=== PATIENT | female | born 1990 | race Caucasian/White ===

== ENCOUNTER 2022-08-31 05:51 | Inpatient (IN) | payer OTHER ==
[2022-08-31 06:19] VITALS: BMI 22.8
[2022-08-31 07:00] LABS: Fetal Membranes Rupture RUPTURE DETECTED (No Rupture)
[2022-08-31] MEDS ORDERED: Bupivacaine 0.25% HCL 30 ML VIAL ONE (08:00)
[2022-08-31] MEDS ORDERED: Ibuprofen 800 MG TAB PO PRN (10:37)
[2022-08-31] MEDS ORDERED: Butorphanol Tartrate 1 MG/ML VIAL SLOW IVP PRN (10:37)
[2022-08-31] MEDS ORDERED: Ondansetron PF 4 MG/2 ML Vial IVP PRN ×2 (10:37→14:19)
[2022-08-31] MEDS ORDERED: Lidocaine 1% (PF) 30 ML VIAL SC PRN (10:37)
[2022-08-31] MEDS ORDERED: hydrALAZINE 20 MG/ML VIAL SLOW IVP PRN ×2 (10:37→16:17)
[2022-08-31] MEDS ORDERED: Acetaminophen 500 MG TAB PO PRN (10:37)
[2022-08-31] MEDS ORDERED: Promethazine HCl 25 MG/ML VIAL IM PRN ×2 (10:37→14:19)
[2022-08-31] MEDS ORDERED: Fentanyl 100 MCG/2 ML VIAL SLOW IVP PRN (10:37)
[2022-08-31] MEDS ORDERED: HYDROcodone/Acetaminophen 5/325 mg Tablet PO PRN ×2 (10:37→16:17)
[2022-08-31] MEDS ORDERED: NS w/ Oxytocin 30 units 500 ML IV SCH (10:45)
[2022-08-31] MEDS ORDERED: Lactated Ringer's 1,000 ML IV SCH (11:00)
[2022-08-31] MEDS ORDERED: Fentanyl 2 mcg/Bup 0.1% Cadd 100 ML ONE (11:43)
[2022-08-31 12:02] LABS: Hemoglobin 14.3 g/dL (12.0-15.5); Mean Corpuscular HGB CONC 33.7 g/dL (32.0-36.0); Mean Corpuscular Hemoglobin 29.9 pg (27.0-33.0); Mean Corpuscular Volume 88.5 fl (81.6-98.3); Mean Platelet Volume 11.2 fl (7.4-10.4); Platelet Count 315 10x3/uL (150-450); RBC Distribution Width 14.1 % (11.5-14.5); Red Blood Cell (RBC) Count 4.79 10x6/uL (3.90-5.03); White Blood Cell (WBC) Count 15.5 10x3/uL (3.5-10.5)
[2022-08-31 12:11] LABS: Syphilis Antibody Nonreactive (Nonreactive); Syphilis Antibody Index 0.03 S/CO (<1.00 Non-Reactive)
[2022-08-31 12:12] LABS: HBSAg Index 0.14 S/CO (0-0.99); Hep B Surf Ag - L&D Non-Reactive S/CO (NonReactive)
[2022-08-31] MEDS ORDERED: Naloxone HCl 0.4 mg/ml Vial IVP PRN ×2 (14:19)
[2022-08-31] MEDS ORDERED: Lactated Ringer's 500 ML IV PRN (14:19)
[2022-08-31] MEDS ORDERED: ePHEDrine Sulfate 50 MG/10 ML VIAL SLOW IVP PRN (14:19)
[2022-08-31] MEDS ORDERED: diphenhydrAMINE 50 MG/ML VIAL IVP PRN (14:19)
[2022-08-31] MEDS ORDERED: Moisturizing Cream (Eucerin) 113 GM JAR TOP PRN (14:19)
[2022-08-31] MEDS ORDERED: Acetaminophen 325 MG TAB PO PRN (14:19)
[2022-08-31] MEDS ORDERED: Fentanyl 2 mcg/Bupivacaine 0.1% Cassette 100 ML EPIDURAL SCH (14:30)
[2022-08-31] MEDS ORDERED: Communication Order-Pharmacy FS SCH (14:30)
[2022-08-31] MEDS ORDERED: Preparation H Ointment 28 GM TUBE PR PRN (16:17)
[2022-08-31] MEDS ORDERED: Milk Of Magnesia 30 ML UDCUP PO PRN (16:17)
[2022-08-31] MEDS ORDERED: Bisacodyl 10 MG SUPP PR PRN (16:17)
[2022-08-31] MEDS ORDERED: Benzocaine-Menthol 82.5 ML CAN TOP PRN (16:17)
[2022-08-31] MEDS ORDERED: Boostrix 0.5 ML (Tdap) VIAL (>/=7 yrs of age) IM ONE (16:17)
[2022-08-31] MEDS ORDERED: Lanolin Ointment 7 GM TUBE TOP PRN (16:17)
[2022-08-31] MEDS: Ferrous Sulfate 325 MG TAB PO SCH (17:18)
[2022-08-31] MEDS: Ibuprofen 800 MG TAB PO SCH (17:25)
[2022-08-31 18:21] LABS: HIV (1/2) Antibody/Antigen Non-Reactive (NonReactive)
[2022-08-31] MEDS: Docusate 100 MG CAP PO SCH (22:39)
[2022-09-01] MEDS: Ibuprofen 800 MG TAB PO SCH ×3 (04:45→20:40)
[2022-09-01] MEDS: Ferrous Sulfate 325 MG TAB PO SCH ×2 (09:06→16:44)
[2022-09-01] MEDS: Docusate 100 MG CAP PO SCH ×2 (09:31→20:39)
[2022-09-01] MEDS ORDERED: Benzocaine-Menthol 82.5 ML CAN TOP PRN (20:07)
[2022-09-01] MEDS ORDERED: Bisacodyl 10 MG SUPP PR PRN (20:07)
[2022-09-01] MEDS ORDERED: HYDROcodone/Acetaminophen 5/325 mg Tablet PO PRN (20:08)
[2022-09-01] MEDS ORDERED: Lanolin Ointment 7 GM TUBE TOP PRN (20:09)
[2022-09-01] MEDS ORDERED: Preparation H Ointment 28 GM TUBE PR PRN (20:09)
[2022-09-01] MEDS ORDERED: Milk Of Magnesia 30 ML UDCUP PO PRN (20:09)
[2022-09-02] MEDS: Ibuprofen 800 MG TAB PO SCH (04:43)
[2022-09-02] MEDS ORDERED: Ferrous Sulfate 325 MG TAB PO SCH (08:00)
[2022-09-02 08:18] VITALS: BP 116/74; TEMP 98.2
[2022-09-02] MEDS: Docusate 100 MG CAP PO SCH (09:19)
== END 2022-09-02 13:25 | disposition home or self-care (01) | DRG 806 ==
LOC: CSHLD/OP 05:51 → CSHPP 05:52 → UNDOADMIN 09:22 → CSHLD 09:22 → CSHPP 16:40 → UNDODISIN 09-01 12:30
PROVIDERS: ADMIT Family Medicine; ATTEND Family Medicine
PROC: 10E0XZZ Delivery of Products of Conception, External Approach (ICD-10-PCS; principal; 2022-08-31)
PROC: 0HQ9XZZ Repair Perineum Skin, External Approach (ICD-10-PCS; 2022-08-31)
DX: O42.02 Full-term premature rupture of membranes, onset of labor within 24 hours of rupture (principal); O98.52 Other viral diseases complicating childbirth; Z37.0 Single live birth; B00.9 Herpesviral infection, unspecified; Z3A.40 40 weeks gestation of pregnancy; Z79.899 Other long term (current) drug therapy; O48.0 Post-term pregnancy; O70.0 First degree perineal laceration during delivery
CPT/HCPCS: 36415; 51702; 84112; 85027; 86780; 86850; 86900; 86901; 87340; 87389; 99285; S0020

== ENCOUNTER 2024-03-21 08:15 | Inpatient (IN) | payer OTHER ==
[~2024-03-21 08:15] MED LIST: Bupivacaine 0.25% HCL 30 ML VIAL ONE
[2024-03-21] MEDS ORDERED: Lidocaine 1% (PF) 30 ML VIAL SC PRN (08:37)
[2024-03-21] MEDS ORDERED: Misoprostol 200 MCG TAB PR PRN (08:37)
[2024-03-21] MEDS ORDERED: Promethazine HCl 25 MG/ML VIAL IM PRN ×2 (08:37→09:30)
[2024-03-21] MEDS ORDERED: Tranexamic Acid 1,000 MG/10 ML VIAL IVP PRN (08:37)
[2024-03-21] MEDS ORDERED: fentaNYL 50 mcg/mL 1 mL Vial SLOW IVP PRN (08:37)
[2024-03-21] MEDS ORDERED: Methylergonovine 0.2 MG/ML VIAL IM PRN (08:37)
[2024-03-21] MEDS ORDERED: Diphenoxylate HCl/Atropine Tablet PO PRN (08:37)
[2024-03-21] MEDS ORDERED: HYDROcodone/Acetaminophen 5/325 mg Tablet PO PRN ×2 (08:37→13:43)
[2024-03-21] MEDS ORDERED: hydrALAZINE 20 MG/ML VIAL SLOW IVP PRN ×2 (08:37→13:43)
[2024-03-21] MEDS ORDERED: Carboprost 250 MCG/ML AMP IM PRN (08:37)
[2024-03-21] MEDS ORDERED: Oxytocin 30 units/NS 500 ML 500 ML IV SCH (08:45)
[2024-03-21] MEDS ORDERED: Lactated Ringer's 1,000 ML IV SCH (08:45)
[2024-03-21 08:46] VITALS: BMI 22.7
[2024-03-21 08:46] LABS: Hematocrit 47.2 % (34.9-44.5); Hemoglobin 15.7 g/dL (12.0-15.5); Mean Corpuscular HGB CONC 33.3 g/dL (32.0-36.0); Mean Corpuscular Hemoglobin 29.7 pg (27.0-33.0); Mean Corpuscular Volume 89.4 fL (81.6-98.3); Mean Platelet Volume 10.3 fL (7.4-10.4); Platelet Count 286 10x3/uL (150-450); RBC Distribution Width 13.8 % (11.5-14.5); Red Blood Cell (RBC) Count 5.28 10x6/uL (3.90-5.03); White Blood Cell (WBC) Count 12.5 10x3/uL (3.5-10.5)
[2024-03-21] MEDS: fentaNYL/Ropivacaine Epidural 100 ML ONE (09:11)
[2024-03-21 09:19] LABS: HBsAg Index 0.21 S/CO (0-0.99); HIV (1/2) Antibody/Antigen Non-Reactive (NonReactive); Hep B Surf Ag - L&D Non-Reactive S/CO (NonReactive)
[2024-03-21 09:20] LABS: Syphilis Antibody Nonreactive (Nonreactive); Syphilis Antibody Index 0.03 S/CO (<1.00 Non-Reactive)
[2024-03-21] MEDS ORDERED: Communication Order-Pharmacy FS SCH (09:30)
[2024-03-21] MEDS ORDERED: Moisturizing Cream (Eucerin) 113 GM JAR TOP PRN (09:30)
[2024-03-21] MEDS ORDERED: fentaNYL 2 mcg/Ropivacaine 0.2% Epidural 100 ML CADD EPIDURAL SCH (09:30)
[2024-03-21] MEDS ORDERED: Acetaminophen 325 MG TAB PO PRN (09:30)
[2024-03-21] MEDS ORDERED: diphenhydrAMINE 50 MG/ML VIAL IVP PRN (09:30)
[2024-03-21] MEDS ORDERED: ePHEDrine Sulfate 50 MG/10 ML VIAL SLOW IVP PRN (09:30)
[2024-03-21] MEDS ORDERED: Lactated Ringer's 500 ML IV PRN (09:30)
[2024-03-21] MEDS ORDERED: Naloxone HCl 0.4 mg/ml Vial IVP PRN ×2 (09:30)
[2024-03-21] MEDS: Ibuprofen 800 MG TAB PO PRN (10:05)
[2024-03-21] MEDS: Ondansetron PF 4 MG/2 ML Vial IVP PRN ×2 (10:44→13:22)
[2024-03-21] MEDS: Oxytocin 30 units/NS 500 ML 500 ML ONE ×2 (12:47→14:37)
[2024-03-21] MEDS: Methylergonovine 0.2 MG/ML VIAL ONE (13:06)
[2024-03-21] MEDS ORDERED: Bisacodyl 10 MG SUPP PR PRN (13:43)
[2024-03-21] MEDS ORDERED: Preparation H Ointment 28 GM TUBE PR PRN (13:43)
[2024-03-21] MEDS ORDERED: Milk Of Magnesia 30 ML UDCUP PO PRN (13:43)
[2024-03-21] MEDS: Misoprostol 200 MCG TAB ONE (14:37)
[2024-03-21] MEDS: Carboprost 250 MCG/ML AMP ONE (14:37)
[2024-03-21] MEDS: Tranexamic Acid 1,000 MG/10 ML VIAL ONE (14:37)
[2024-03-21] MEDS: Ferrous Sulfate 325 MG TAB PO SCH (14:38)
[2024-03-21] MEDS: Ibuprofen 800 MG TAB PO SCH (17:15)
[2024-03-21] MEDS: Docusate 100 MG CAP PO SCH (21:23)
[2024-03-22 08:13] VITALS: BP 111/73; TEMP 97.8
== END 2024-03-22 13:20 | disposition home or self-care (01) | DRG 806 ==
LOC: CSHLD/OP 08:15 → CSHLD 08:33 → CSHPP 12:40
PROVIDERS: ADMIT Family Medicine; ATTEND Family Medicine
PROC: 10E0XZZ Delivery of Products of Conception, External Approach (ICD-10-PCS; principal; 2024-03-21)
PROC: 0HQ9XZZ Repair Perineum Skin, External Approach (ICD-10-PCS; 2024-03-21)
DX: O42.02 Full-term premature rupture of membranes, onset of labor within 24 hours of rupture (principal); O72.1 Other immediate postpartum hemorrhage; Z37.0 Single live birth; Z3A.39 39 weeks gestation of pregnancy; O69.81X0 Labor and delivery complicated by cord around neck, without compression, not applicable or unspecified; O70.0 First degree perineal laceration during delivery
CPT/HCPCS: 85027; 86780; 86850; 86900; 86901; 87340; 87389; 99285; J0665; J2210; J2405; J2590